=== PATIENT | female | born 1970 | race Two or more races ===

== ENCOUNTER 2017-02-19 07:58 | Day surgery (SDC) | payer OTHER ==
[~2017-02-19] VITALS: Ht 170.2 cm; Wt 61.0 kg
[2017-02-19 09:23] VITALS: Ht 170.2 cm; Wt 61.0 kg
[2017-02-19] MEDS ORDERED: OMEP40CA6 PO (09:33)
[2017-02-19] MEDS ORDERED: GLYC1SUP92 PR (09:33)
[2017-02-19] MEDS ORDERED: HYDR10TA36 PO (09:33)
[2017-02-19] MEDS ORDERED: TRAZ50TA18 PO (09:33)
[2017-02-19 09:45] VITALS: BP 120/57; PULSE 77
[2017-02-19] MEDS ORDERED: LIDOCAINE 2% (SDV) 5 ML INJ ONE (09:52)
[2017-02-19] MEDS ORDERED: PROPOFOL 60 ML ONE (09:52)
[2017-02-19 10:27] VITALS: BP 92/51; PULSE 57; RESP 22
[2017-02-19 11:00] VITALS: BP 109/53; PULSE 56; RESP 12
--- NOTE | 2017-03-20 05:41 | GILP ---
DATE OF PROCEDURE: 03/07/2017 PROCEDURES PERFORMED: 1. Esophagogastroduodenoscopy and biopsy. 2. Colonoscopy. SURGEON: Nathan Worley MD. PREOPERATIVE DIAGNOSES: 1. Abdominal pain. 2. Screening colonoscopy. POSTOPERATIVE DIAGNOSES: 1. Bile reflux gastritis with erosions. 2. Gastric mucosal biopsies were taken for Helicobacter pylori test. 3. Colonoscopy all the way to the cecum. 4. Internal hemorrhoids. 5. No colon neoplasm was identified. INDICATION FOR PROCEDURE: Ms. Radha Menchaca is a 46-year-old female patient who has upper abdominal pain not responding to therapy. The patient also needed a screening colonoscopy. The procedures and possible complications were well explained to the patient. The patient understood and consented to the procedures. DESCRIPTION OF PROCEDURE: The gastroscope was carefully introduced into the esophagus and under direct vision it was advanced to the stomach and to the pylorus into the duodenal bulb and descending duodenum. Findings esophagus, the mucosa was normal. Stomach, the patient had bile reflux gastritis with erosions. Gastric mucosal biopsies were taken for Helicobacter pylori test. Duodenum was normal. The colonoscope was carefully introduced in the rectum and under direct vision it was advanced all the way to the cecum. Findings, the patient had internal hemorrhoids. No colon neoplasm was identified. The patient tolerated the procedures very well and there was no complications from the procedures. At the end of the procedures she was awake with stable vital signs and she was discharged home in the care of her family. IMPRESSION: Please see postoperative diagnoses. PLAN: 1. Omeprazole 20 mg p.o. q.a.m. 2. Carafate 1 gram p.o. t.i.d. before meals. 3. Await histopathology report. 4. Next screening colonoscopy in 10 years. Dictated By: MD SARAH More/bryce/darrell /Document#: [id number] CC: Nathan Worley MD;*[facility]*
== END 2017-02-19 17:29 | disposition home or self-care (01) ==
LOC: GIL 07:58
PROVIDERS: ATTEND Internal Medicine Gastroenterology
DX: Z12.11 Encounter for screening for malignant neoplasm of colon (principal); K29.60 Other gastritis without bleeding; K64.8 Other hemorrhoids
CPT/HCPCS: 43239; 45378; 87081; Z7610